=== PATIENT | male | born 1970 | race Caucasian/White ===

== ENCOUNTER 2016-11-25 14:47 | Emergency (ER) | payer MEDICAID, OTHER, SELFPAY ==
[~2016-11-25] VITALS: Ht 180.3 cm; Wt 99.8 kg
[2016-11-25 14:51] VITALS: BP 182/107
[2016-11-25] MEDS ORDERED: Metoclopramide 10mg/2ml Inj IM ONE (15:00)
--- NOTE | 2016-11-25 15:07 | Emergency Room Report ---
History of Present Illness General Chief Complaint: Headache Source: Patient Present Illness HPI 46YOM walk-in with "migraine headache" since this morning. Associated with auras and nausea. Similar to previous migraines. Denies fever/chills, neck pain/stiffness. Takes nasal spray imitrex. Took this morning but didnt help. Denies extremity weakness. Drove to ER. Multiple visits to ER in past for alleged migraine headache as well. Allergies: Coded Allergies: PROCHLORPERAZINE (Verified Allergy, Unknown, 11/25/16) Patient History Past Medical History: migraines Past Surgical History: none Pertinent Family History: none Social History: Denies: alcohol use, drug use, smoking Immunizations: UTD Reviewed Nursing Documentation: PMH: Agreed, PSxH: Agreed Nursing Documentation-PMH Hx Hypertension: Yes Review of Systems All Other Systems: negative except mentioned in HPI Physical Exam Vital Signs Date Time Temp Pulse Resp B/P Pulse Ox O2 Delivery O2 Flow Rate FiO2 11/25/16 14:51 98.1 75 14 182/107 100 Room Air Sp02 EP Interpretation: reviewed, abnormal General Appearance: normal inspection, well appearing, no apparent distress, alert, GCS 15, non-toxic, other - Ambulated in ED Head: normocephalic, atraumatic Eyes: bilateral eye EOMI, bilateral eye PERRL ENT: normal ENT inspection, hearing grossly normal, normal pharynx, no angioedema, normal voice Neck: normal inspection, full range of motion, supple, no meningismus, no bony tend Respiratory: normal inspection, lungs clear, normal breath sounds, no respiratory distress, no retraction, no wheezing Cardiovascular #1: regular rate, rhythm, no edema Gastrointestinal: normal inspection, normal bowel sounds, non tender, soft, no guarding, no hernia Genitourinary: no CVA tenderness Musculoskeletal: normal inspection, back normal, normal range of motion, Veronica' s Sign negative Neurologic: normal inspection, alert, oriented x3, responsive, pediatric associate III-XII nml as tested, motor strength/tone normal, speech normal Psychiatric: normal inspection, judgement/insight normal, mood/affect normal Skin: normal inspection Medical Decision Making Diagnostic Impression: Primary Impression: Headache Qualified Codes: R51 - Headache Additional Impressions: Narcotic abuse, continuous Drug-seeking behavior ER Course 46YOM with headache since this morning. VS notable for hypertension. Afebrile. - Low suspicion for SAH or meningitis given well appearance, absence of focal neuro deficits, absence of meningismus, normal vital signs, and duration and intensity of headache, and consistency with previous migraines symptoms - I offered IM reglan and PO tylenol but patient refused - Requested Rx for multiple Norcos. I offered 1 norco in ER but patient states he's driving. I offered to let patient rest here but he didnt want to do that either. I offered Rx for 1-2 norcos but patient states "that wont be enough." - Patient tore off wristband and walked out of ER - refused to wait to sign DC paperwork - RN unable to do discharge vitals prior to walk-out. - Per [facility], patient got Rx for 60 Souris October 06 with 3x Refill authorized. Strong suspicion for narcotic seeking behavior. Last Vital Signs Date Time Temp Pulse Resp B/P Pulse Ox O2 Delivery O2 Flow Rate FiO2 11/25/16 14:51 98.1 75 14 182/107 100 Room Air Status: improved Disposition: HOME, SELF-CARE JORDAN FLORES M.D. November 25, 2016 15:07
[2016-11-25 15:15] VITALS: BP 182/107
== END 2016-11-25 15:15 | disposition home or self-care (01) ==
LOC: EMR 15:07
DX: G43.109 Migraine with aura, not intractable, without status migrainosus (principal); F19.10 Other psychoactive substance abuse, uncomplicated; Z76.5 Malingerer [conscious simulation]; I10 Essential (primary) hypertension; Z88.8 Allergy status to other drugs, medicaments and biological substances
CPT/HCPCS: 99283